=== PATIENT | female | born 1940 | race Caucasian/White ===

== ENCOUNTER 2016-10-24 16:53 | Inpatient (IN) | payer MEDICARE, OTHER ==
[~2016-10-24] VITALS: Ht 152.4 cm; Wt 79.1 kg
[~2016-10-24 16:53] MED LIST: AML5T PO; CHOL1TAB42 PO; CLOP75TA41 PO; DIPH-232 PO; ESCI5TAB PO; FENO145T20 PO; HYDR-2601 PO; ISOS30TA4 PO; LOVA40TA72 PO; LURA80TA PO; NIAC500T71 PO; OMEP20CA5 PO; [UNRECOGNIZED DRUG - CODE] PO
[2016-10-24 17:39] LABS: Basophils # (auto) 0 uL; Basophils % (auto) 0.5 % (0.0-2.0); Eosinophils # (auto) 0.1 uL; Eosinophils % (auto) 1.5 % (0.0-7.0); Hematocrit 40.4 % (36.0-46.0); Hemoglobin 12.9 g/dL (12.2-16.2); Lymphocytes # (auto) 2.1 uL; Lymphocytes % (auto) 36.3 % (10.0-50.0); Mean Corpuscular Hemoglobin 28.4 pg (28.0-32.0); Mean Corpuscular Volume 88.9 fL (80.0-100.0); Mean Platelet Volume 10.9 fL (7.4-10.4); Monocytes # (auto) 0.4 uL; Monocytes % (auto) 7.2 % (0.0-12.0); Neutrophils # (auto) 3.2 uL; Neutrophils % (auto) 54.5 % (37.0-80.0); Platelet Count (auto) 207 10^3/uL (140-450); Red Cell Distribution Width 18.1 % (11.6-16.0); SUSPECT VIEW TRANSMISSION; White Blood Cell 5.8 10^3/uL (4.4-10.8)
[2016-10-24 18:03] LABS: Albumin 2.6 g/dL (3.4-5.0); Anion Gap 12 (5-15); Aspartate Aminotransferase 21 U/L (15-37); BUN/Creatinine Ratio 26.8; Blood Urea Nitrogen 48 mg/dL (7-18); Calcium 7.8 mg/dL (8.5-10.1); Carbon Dioxide 23 mmol/L (21-32); Chloride 109 mmol/L (98-107); GFR African American 35 mL/min; GFR Non-African American 29 mL/min; Glucose 136 mg/dL (74-106); Potassium 4.6 mmol/L (3.5-5.1); Sodium 144 mmol/L (136-145)
[2016-10-24 18:12] LABS: Alkaline Phosphatase 84 U/L (45-117); Bilirubin, Total 0.7 mg/dL (0.2-1.0); Total Protein 6.1 g/dL (6.4-8.2)
[2016-10-24 18:14] LABS: Urine Bilirubin Negative (Negative); Urine Blood 1+ /uL (Negative); Urine Color Yellow (Yellow); Urine Glucose Normal (Normal); Urine Hyaline Cast MOD /lpf (0 - 2); Urine Ketone Negative (Negative); Urine Mucus FEW (None Seen); Urine Nitrite Negative (Negative); Urine RBC 38 /hpf (0 - 4); Urine Squamous Epithelial Cell FEW /hpf (<5); Urine Urobilinogen Normal (Negative); Urine pH 5.5 (5.0-8.0)
[2016-10-24 18:24] LABS: Lactic Acid 3.6 mmol/L (0.4-2.0)
[2016-10-24 18:43] LABS: REFLEX LACTIC ACID YES OR NO YES
[2016-10-24] MEDS ORDERED: LORazepam 2MG/ML-1ML VIAL IV ONE (23:30)
[2016-10-25] MEDS ORDERED: FUROSEMIDE 40 MG TAB PO ONE (01:15)
[2016-10-25] MEDS ORDERED: FUROSEMIDE 20 MG/2 ML VIAL IV ONE (02:00)
[2016-10-25] MEDS ORDERED: cefTRIAXone 1GM/50ML D5W 50 ML IV ONE (07:15)
[2016-10-25] MEDS ORDERED: MORPHINE SULF INJ 2 MG/ML SYRINGE 1ML IV PRN ×2 (07:15)
[2016-10-25] MEDS ORDERED: NITROGLYCERIN 0.4 MG SL TAB SL PRN (07:15)
[2016-10-25] MEDS ORDERED: DEXTROSE (50%) 50ML SYRG IV PRN (07:15)
[2016-10-25] MEDS ORDERED: ACETAMINOPHEN 500 MG TAB PO PRN (07:15)
[2016-10-25] MEDS ORDERED: LACTULOSE 20Gm/30ML SOLN PO PRN (07:15)
[2016-10-25] MEDS ORDERED: TEMAZEPAM 15 MG CAP PO PRN (07:15)
[2016-10-25] MEDS ORDERED: PROMETHAZINE HCL 25 MG/ML 1ML IV PRN (07:15)
[2016-10-25] MEDS ORDERED: LORazepam 0.5 MG TAB PO PRN (09:30)
[2016-10-25] MEDS: ENOXAPARIN SOD 30 MG/0.3 ML SYRINGE SC SCH (09:30)
[2016-10-25] MEDS: DONEPEZIL HYDROCHLORIDE 5 MG TAB PO SCH ×2 (09:31→09:51)
[2016-10-25] MEDS: cefTRIAXone 1GM/50ML D5W 50 ML IV SCH (09:31)
[2016-10-25] MEDS: ASPirin 81 mg TAB PO SCH (09:31)
[2016-10-25] MEDS: FUROSEMIDE 40 MG/4 ML VIAL IV SCH (09:31)
[2016-10-25] MEDS: CARVEDILOL 3.125 MG TAB PO SCH ×2 (09:32→21:57)
[2016-10-25] MEDS: PANTOPRAZOLE 40 MG TAB PO SCH ×2 (09:32→09:51)
[2016-10-25] MEDS: POTASSIUM CHL 20 Meq TABLET PO SCH ×2 (09:32→09:51)
[2016-10-25] MEDS: Niacin SR 500mg TAB PO SCH ×2 (09:33→09:51)
[2016-10-25] MEDS: ENALAPRIL MALEATE 2.5 MG TAB PO SCH (09:33)
[2016-10-25] MEDS: CITALOPRAM HYDROBR 20 MG TAB PO SCH (09:33)
[2016-10-25] MEDS: ISOSORBIDE MONONITRATE 60 MG TAB PO SCH ×2 (09:34→09:51)
[2016-10-25] MEDS: TRICOR PO SCH ×2 (09:34→17:30)
[2016-10-25] MEDS: LORazepam 0.5 MG TAB PO PRN (09:40)
[2016-10-25] MEDS ORDERED: PATIENTS OWN MEDICATION (Escitalopram Oxalate (Lexapro) 1 TAB) PO SCH (10:00)
[2016-10-25] MEDS ORDERED: OMEPRAZOLE 20MG/10ML ORAL SUSP PO SCH (10:00)
[2016-10-25] MEDS ORDERED: PATIENTS OWN MEDICATION (Isosorbide Mononitrate (Isosorbide Mononitrate Er) 1 TAB) PO SCH ×2 (10:00)
[2016-10-25] MEDS ORDERED: PATIENTS OWN MEDICATION (Fenofibrate 1 TAB) PO SCH (10:00)
[2016-10-25] MEDS ORDERED: LOVASTATIN PO SCH (10:00)
[2016-10-25] MEDS ORDERED: ENOXAPARIN SOD 40 MG/0.4 ML SYRINGE SC SCH (10:00)
[2016-10-25] MEDS: InsuLIN REG 1unit/0.01ml Soln (100units/ml) SC SCH ×3 (11:30→22:00)
[2016-10-25] MEDS: ACCU-CHEK COMFORT CURVE STRIP VI SCH ×3 (11:43→22:06)
[2016-10-25 12:32] VITALS: BP 142/100
[2016-10-25 17:28] VITALS: BP 130/82
[2016-10-25] MEDS: amLODIPine BESYLATE 5 MG TAB PO SCH (17:30)
[2016-10-25] MEDS: CLOPIDOGREL BISULFATE 75 MG TAB PO SCH (17:30)
[2016-10-25] MEDS ORDERED: LURASIDONE HCL PO SCH (18:00)
[2016-10-25] MEDS: ATORVASTATIN 20 MG TAB PO SCH (21:56)
[2016-10-25 22:00] VITALS: BP 135/80
[2016-10-26 05:00] VITALS: BP 115/79
[2016-10-26] MEDS: ACCU-CHEK COMFORT CURVE STRIP VI SCH ×4 (06:30→21:31)
[2016-10-26] MEDS: InsuLIN REG 1unit/0.01ml Soln (100units/ml) SC SCH ×4 (06:30→21:31)
[2016-10-26 07:58] LABS: Albumin 2.4 g/dL (3.4-5.0); BUN/Creatinine Ratio 26.9; Bilirubin, Total 0.6 mg/dL (0.2-1.0); Calcium 8.2 mg/dL (8.5-10.1); Potassium 4.6 mmol/L (3.5-5.1); Total Protein 5.6 g/dL (6.4-8.2)
[2016-10-26 09:00] VITALS: BP 136/77
[2016-10-26] MEDS: FUROSEMIDE 40 MG/4 ML VIAL IV SCH (09:34)
[2016-10-26] MEDS: CARVEDILOL 3.125 MG TAB PO SCH ×3 (09:37→21:42)
[2016-10-26] MEDS: DONEPEZIL HYDROCHLORIDE 5 MG TAB PO SCH (09:37)
[2016-10-26] MEDS: cefTRIAXone 1GM/50ML D5W 50 ML IV SCH (09:38)
[2016-10-26] MEDS: Niacin SR 500mg TAB PO SCH (09:39)
[2016-10-26] MEDS: CITALOPRAM HYDROBR 20 MG TAB PO SCH (09:40)
[2016-10-26] MEDS: ENALAPRIL MALEATE 2.5 MG TAB PO SCH (09:41)
[2016-10-26] MEDS: ENOXAPARIN SOD 30 MG/0.3 ML SYRINGE SC SCH (09:42)
[2016-10-26] MEDS: ASPirin 81 mg TAB PO SCH (09:50)
[2016-10-26] MEDS: TRICOR PO SCH ×2 (09:50→18:00)
[2016-10-26] MEDS: ISOSORBIDE MONONITRATE 60 MG TAB PO SCH (09:50)
[2016-10-26] MEDS: POTASSIUM CHL 20 Meq TABLET PO SCH (09:51)
[2016-10-26] MEDS: PANTOPRAZOLE 40 MG TAB PO SCH (09:51)
[2016-10-26 13:00] VITALS: BP 131/77
[2016-10-26] MEDS: HYDROcodone-ACET 5/325MG TAB PO PRN (13:23)
[2016-10-26] MEDS ORDERED: ONDANSETRON HCL 4 MG/2 ML VIAL IV ONE (14:00)
[2016-10-26] MEDS ORDERED: LEVOTHYROXINE SODIUM 50 MCG TAB PO ONE (14:45)
[2016-10-26 17:00] VITALS: BP 103/78
[2016-10-26] MEDS: amLODIPine BESYLATE 5 MG TAB PO SCH (18:00)
[2016-10-26] MEDS: CLOPIDOGREL BISULFATE 75 MG TAB PO SCH (18:11)
[2016-10-26] MEDS: ATORVASTATIN 20 MG TAB PO SCH (21:32)
[2016-10-26 22:00] VITALS: BP 104/63
[2016-10-27] MEDS: HYDROcodone-ACET 5/325MG TAB PO PRN (02:15)
[2016-10-27 05:30] VITALS: BP 116/66
[2016-10-27] MEDS: ACCU-CHEK COMFORT CURVE STRIP VI SCH ×4 (06:20→22:23)
[2016-10-27] MEDS: InsuLIN REG 1unit/0.01ml Soln (100units/ml) SC SCH ×4 (06:30→22:00)
[2016-10-27] MEDS: LEVOTHYROXINE SODIUM 50 MCG TAB PO SCH (06:31)
[2016-10-27 06:41] LABS: BUN/Creatinine Ratio 23.3; Calcium 7.6 mg/dL (8.5-10.1)
[2016-10-27 08:00] VITALS: BP 140/69
[2016-10-27] MEDS: FUROSEMIDE 40 MG/4 ML VIAL IV SCH ×2 (09:56→17:58)
[2016-10-27] MEDS: ASPirin 81 mg TAB PO SCH (09:57)
[2016-10-27] MEDS: DONEPEZIL HYDROCHLORIDE 5 MG TAB PO SCH (09:57)
[2016-10-27] MEDS: CARVEDILOL 3.125 MG TAB PO SCH ×2 (09:57→22:22)
[2016-10-27] MEDS: CITALOPRAM HYDROBR 20 MG TAB PO SCH (09:57)
[2016-10-27] MEDS: Niacin SR 500mg TAB PO SCH (09:59)
[2016-10-27] MEDS: ISOSORBIDE MONONITRATE 60 MG TAB PO SCH (09:59)
[2016-10-27] MEDS: POTASSIUM CHL 20 Meq TABLET PO SCH ×2 (09:59→22:21)
[2016-10-27] MEDS: PANTOPRAZOLE 40 MG TAB PO SCH (09:59)
[2016-10-27] MEDS: ENOXAPARIN SOD 30 MG/0.3 ML SYRINGE SC SCH (10:00)
[2016-10-27] MEDS: TRICOR PO SCH ×2 (10:00→17:59)
[2016-10-27 13:00] VITALS: BP 119/57
[2016-10-27] MEDS: METOLAZONE 5 MG TAB PO SCH (14:22)
[2016-10-27 17:00] VITALS: BP 123/65
[2016-10-27] MEDS: CLOPIDOGREL BISULFATE 75 MG TAB PO SCH (17:58)
[2016-10-27] MEDS: amLODIPine BESYLATE 5 MG TAB PO SCH (17:59)
[2016-10-27] MEDS: IPRATROPIUM BROM 0.5 MG/2.5ML INH SOL NEB SCH (19:06)
[2016-10-27] MEDS: ALBUTEROL SULF 2.5 MG/0.5ML(0.5%) NEB SOLN NEB SCH (19:07)
[2016-10-27 22:00] VITALS: BP 115/55
[2016-10-27] MEDS: ATORVASTATIN 20 MG TAB PO SCH (22:21)
[2016-10-28 02:30] VITALS: BP 115/55
[2016-10-28 05:30] VITALS: BP 128/70
[2016-10-28] MEDS: FUROSEMIDE 40 MG/4 ML VIAL IV SCH ×2 (05:58→17:57)
[2016-10-28] MEDS: LEVOTHYROXINE SODIUM 50 MCG TAB PO SCH (05:58)
[2016-10-28] MEDS: InsuLIN REG 1unit/0.01ml Soln (100units/ml) SC SCH ×4 (06:19→22:07)
[2016-10-28] MEDS: ACCU-CHEK COMFORT CURVE STRIP VI SCH ×4 (06:19→22:04)
[2016-10-28] MEDS: IPRATROPIUM BROM 0.5 MG/2.5ML INH SOL NEB SCH ×4 (06:38→19:31)
[2016-10-28] MEDS: ALBUTEROL SULF 2.5 MG/0.5ML(0.5%) NEB SOLN NEB SCH ×4 (06:38→19:31)
[2016-10-28 09:23] VITALS: BP 126/82
[2016-10-28] MEDS: Niacin SR 500mg TAB PO SCH (09:54)
[2016-10-28] MEDS: DONEPEZIL HYDROCHLORIDE 5 MG TAB PO SCH (09:54)
[2016-10-28] MEDS: POTASSIUM CHL 20 Meq TABLET PO SCH ×2 (09:54→21:57)
[2016-10-28] MEDS: PANTOPRAZOLE 40 MG TAB PO SCH (09:55)
[2016-10-28] MEDS: ENOXAPARIN SOD 30 MG/0.3 ML SYRINGE SC SCH (09:57)
[2016-10-28] MEDS: ISOSORBIDE MONONITRATE 60 MG TAB PO SCH (10:46)
[2016-10-28] MEDS: METOLAZONE 5 MG TAB PO SCH (10:47)
[2016-10-28] MEDS: ASPirin 81 mg TAB PO SCH (10:47)
[2016-10-28] MEDS: CITALOPRAM HYDROBR 20 MG TAB PO SCH (10:47)
[2016-10-28] MEDS: CARVEDILOL 3.125 MG TAB PO SCH ×2 (10:47→21:58)
[2016-10-28] MEDS ORDERED: NITROFURANTOIN (MONO) 100 mg CAP PO ONE (11:45)
[2016-10-28 13:00] VITALS: BP 132/87
[2016-10-28] MEDS: LORazepam 0.5 MG TAB PO PRN (14:47)
[2016-10-28] MEDS: HYDROcodone-ACET 5/325MG TAB PO PRN ×2 (14:47→21:57)
[2016-10-28 16:53] VITALS: BP 138/77
[2016-10-28] MEDS: TRICOR PO SCH (17:37)
[2016-10-28] MEDS: CLOPIDOGREL BISULFATE 75 MG TAB PO SCH (17:58)
[2016-10-28] MEDS: amLODIPine BESYLATE 5 MG TAB PO SCH (17:58)
[2016-10-28 20:00] VITALS: BP 126/53
[2016-10-28] MEDS: ATORVASTATIN 20 MG TAB PO SCH (21:57)
[2016-10-28] MEDS: NITROFURANTOIN (MONO) 100 mg CAP PO SCH (21:57)
[2016-10-29] VITALS (7 sets, daily range): BP systolic 115–142; BP diastolic 60–73
[2016-10-29 05:44] LABS: Calcium 7.7 mg/dL (8.5-10.1); Potassium 5.4 mmol/L (3.5-5.1)
[2016-10-29 05:55] LABS: BUN/Creatinine Ratio 27.6
[2016-10-29] MEDS: FUROSEMIDE 40 MG/4 ML VIAL IV SCH ×2 (06:19→17:42)
[2016-10-29] MEDS: ACCU-CHEK COMFORT CURVE STRIP VI SCH ×4 (06:20→21:44)
[2016-10-29] MEDS: LEVOTHYROXINE SODIUM 50 MCG TAB PO SCH (06:20)
[2016-10-29] MEDS: LORazepam 0.5 MG TAB PO PRN (06:31)
[2016-10-29] MEDS: InsuLIN REG 1unit/0.01ml Soln (100units/ml) SC SCH ×4 (06:31→21:49)
[2016-10-29] MEDS: HYDROcodone-ACET 5/325MG TAB PO PRN (06:32)
[2016-10-29] MEDS: ISOSORBIDE MONONITRATE 60 MG TAB PO SCH (10:26)
[2016-10-29] MEDS: METOLAZONE 5 MG TAB PO SCH (10:27)
[2016-10-29] MEDS: NITROFURANTOIN (MONO) 100 mg CAP PO SCH ×2 (10:27→21:43)
[2016-10-29] MEDS: PANTOPRAZOLE 40 MG TAB PO SCH (10:27)
[2016-10-29] MEDS: ENOXAPARIN SOD 30 MG/0.3 ML SYRINGE SC SCH (10:27)
[2016-10-29] MEDS: CITALOPRAM HYDROBR 20 MG TAB PO SCH (10:28)
[2016-10-29] MEDS: ASPirin 81 mg TAB PO SCH (10:28)
[2016-10-29] MEDS: Niacin SR 500mg TAB PO SCH (10:28)
[2016-10-29] MEDS: POTASSIUM CHL 10% (20 MEQ/15ML) ORAL SOLN PO SCH ×2 (10:29→21:44)
[2016-10-29] MEDS: CARVEDILOL 3.125 MG TAB PO SCH ×2 (10:29→21:43)
[2016-10-29] MEDS: DONEPEZIL HYDROCHLORIDE 5 MG TAB PO SCH (10:29)
[2016-10-29] MEDS: CLOPIDOGREL BISULFATE 75 MG TAB PO SCH (17:42)
[2016-10-29] MEDS: TRICOR PO SCH (17:43)
[2016-10-29] MEDS: amLODIPine BESYLATE 5 MG TAB PO SCH (17:43)
[2016-10-29] MEDS: IPRATROPIUM BROM 0.5 MG/2.5ML INH SOL NEB SCH (19:17)
[2016-10-29] MEDS: ALBUTEROL SULF 2.5 MG/0.5ML(0.5%) NEB SOLN NEB SCH (19:17)
[2016-10-29] MEDS: ATORVASTATIN 20 MG TAB PO SCH (21:43)
[2016-10-30 04:40] VITALS: BP 140/73
[2016-10-30] MEDS: FUROSEMIDE 40 MG/4 ML VIAL IV SCH ×2 (06:06→18:06)
[2016-10-30] MEDS: InsuLIN REG 1unit/0.01ml Soln (100units/ml) SC SCH ×4 (06:19→22:00)
[2016-10-30] MEDS: ACCU-CHEK COMFORT CURVE STRIP VI SCH ×4 (06:19→21:47)
[2016-10-30] MEDS ORDERED: LEVOTHYROXINE SODIUM 50 MCG TAB PO SCH (07:00)
[2016-10-30] MEDS: IPRATROPIUM BROM 0.5 MG/2.5ML INH SOL NEB SCH ×3 (07:28→19:57)
[2016-10-30] MEDS: ALBUTEROL SULF 2.5 MG/0.5ML(0.5%) NEB SOLN NEB SCH ×3 (07:28→19:57)
[2016-10-30 08:58] VITALS: BP 128/70
[2016-10-30] MEDS: ENOXAPARIN SOD 30 MG/0.3 ML SYRINGE SC SCH (09:45)
[2016-10-30] MEDS: Niacin SR 500mg TAB PO SCH (09:46)
[2016-10-30] MEDS: DONEPEZIL HYDROCHLORIDE 5 MG TAB PO SCH (09:46)
[2016-10-30] MEDS: PANTOPRAZOLE 40 MG TAB PO SCH (09:47)
[2016-10-30] MEDS: CARVEDILOL 3.125 MG TAB PO SCH ×2 (09:47→21:47)
[2016-10-30] MEDS: METOLAZONE 5 MG TAB PO SCH (09:48)
[2016-10-30] MEDS: NITROFURANTOIN (MONO) 100 mg CAP PO SCH ×2 (09:48→21:47)
[2016-10-30] MEDS: ASPirin 81 mg TAB PO SCH (09:48)
[2016-10-30] MEDS: CITALOPRAM HYDROBR 20 MG TAB PO SCH (09:49)
[2016-10-30] MEDS: ISOSORBIDE MONONITRATE 60 MG TAB PO SCH (09:49)
[2016-10-30 10:34] LABS: BUN/Creatinine Ratio 27.7; Calcium 7.8 mg/dL (8.5-10.1); Potassium 5.5 mmol/L (3.5-5.1)
[2016-10-30 12:08] VITALS: BP 137/87
[2016-10-30 16:53] VITALS: BP 121/65
[2016-10-30] MEDS: TRICOR PO SCH (18:00)
[2016-10-30] MEDS: CLOPIDOGREL BISULFATE 75 MG TAB PO SCH (18:07)
[2016-10-30] MEDS: amLODIPine BESYLATE 5 MG TAB PO SCH (18:07)
[2016-10-30 21:39] VITALS: BP 133/68
[2016-10-30] MEDS: ATORVASTATIN 20 MG TAB PO SCH (21:47)
[2016-10-31 02:20] VITALS: BP 126/71
[2016-10-31 04:42] VITALS: BP 145/74
[2016-10-31] MEDS: IPRATROPIUM BROM 0.5 MG/2.5ML INH SOL NEB SCH ×3 (05:47→11:39)
[2016-10-31] MEDS: ALBUTEROL SULF 2.5 MG/0.5ML(0.5%) NEB SOLN NEB SCH ×3 (05:47→11:44)
[2016-10-31] MEDS: InsuLIN REG 1unit/0.01ml Soln (100units/ml) SC SCH ×2 (06:07→11:30)
[2016-10-31] MEDS: ACCU-CHEK COMFORT CURVE STRIP VI SCH ×2 (06:07→11:30)
[2016-10-31] MEDS: FUROSEMIDE 40 MG/4 ML VIAL IV SCH (06:07)
[2016-10-31 06:41] LABS: Calcium 8.6 mg/dL (8.5-10.1); Potassium 4.6 mmol/L (3.5-5.1)
[2016-10-31] MEDS ORDERED: LEVOTHYROXINE SODIUM 100 MCG TAB PO SCH (07:00)
[2016-10-31 08:00] VITALS: BP 147/72
[2016-10-31] MEDS: CARVEDILOL 3.125 MG TAB PO SCH (09:51)
[2016-10-31] MEDS: ASPirin 81 mg TAB PO SCH (09:51)
[2016-10-31] MEDS: PANTOPRAZOLE 40 MG TAB PO SCH (09:51)
[2016-10-31] MEDS: ISOSORBIDE MONONITRATE 60 MG TAB PO SCH (09:52)
[2016-10-31] MEDS: CITALOPRAM HYDROBR 20 MG TAB PO SCH (09:53)
[2016-10-31] MEDS: METOLAZONE 5 MG TAB PO SCH (09:54)
[2016-10-31] MEDS: DONEPEZIL HYDROCHLORIDE 5 MG TAB PO SCH (09:55)
[2016-10-31] MEDS: NITROFURANTOIN (MONO) 100 mg CAP PO SCH (09:55)
[2016-10-31] MEDS: ENOXAPARIN SOD 30 MG/0.3 ML SYRINGE SC SCH (09:56)
[2016-10-31] MEDS: Niacin SR 500mg TAB PO SCH (09:56)
[2016-10-31 10:53] LABS: Temperature: 23.1 C (20.0-25.0)
[2016-10-31 13:00] VITALS: BP 141/74
[2016-10-31 15:11] VITALS: BP 141/74
[2016-10-31 17:00] VITALS: BP 154/73
== END 2016-10-31 17:45 | disposition hospice, home (50) | DRG 682 ==
LOC: EDBD 16:53 → ER 16:53 → TELE 16:54 → TELE-CENTR 10-25 12:30
PROVIDERS: ADMIT Internal Medicine; ATTEND Internal Medicine Pulmonary Disease
DX: N17.9 Acute kidney failure, unspecified (principal); G93.41 Metabolic encephalopathy; I50.23 Acute on chronic systolic (congestive) heart failure; I13.0 Hypertensive heart and chronic kidney disease with heart failure and stage 1 through stage 4 chronic kidney disease, or unspecified chronic kidney disease; N39.0 Urinary tract infection, site not specified; N18.4 Chronic kidney disease, stage 4 (severe); I25.10 Atherosclerotic heart disease of native coronary artery without angina pectoris; F02.80 Dementia in other diseases classified elsewhere, unspecified severity, without behavioral disturbance, psychotic disturbance, mood disturbance, and anxiety; J44.9 Chronic obstructive pulmonary disease, unspecified; M10.9 Gout, unspecified; E03.9 Hypothyroidism, unspecified; E11.22 Type 2 diabetes mellitus with diabetic chronic kidney disease; I27.2 Other secondary pulmonary hypertension; I35.0 Nonrheumatic aortic (valve) stenosis; Z95.1 Presence of aortocoronary bypass graft; Z86.73 Personal history of transient ischemic attack (TIA), and cerebral infarction without residual deficits; Z87.891 Personal history of nicotine dependence; Z83.3 Family history of diabetes mellitus; Z23 Encounter for immunization
CPT/HCPCS: 36415; 36600; 51702; 70450; 71010; 80048; 80053; 80320; 81001; 82550; 82805; 82962; 83036; 83605; 83880; 84439; 84443; 84481; 84484; 85025; 87040; 87086; 87088; 87186; 93005; 93306; 93971; 94640; 96365; 96372; 96375; J0696; J1815; J2405

== ENCOUNTER 2017-01-16 18:58 | Emergency (ER) | payer MEDICARE, OTHER ==
[~2017-01-16] VITALS: Ht 167.6 cm; Wt 65.8 kg
[~2017-01-16 18:58] MED LIST changes: +CALCIUM CHLOR(10%) 100MG/ML 10ML SYRINGE IV ONE; +EPINEPHrine HCL 1 MG/10 ML SYRG IV ONE; -FENO145T20 PO; -HYDR-2601 PO; +SODIUM BICARBONATE 8.4% INJ 50ML SYRINGE IV ONE
== END 2017-01-16 22:56 | disposition expired ==
LOC: EDUNIT# 18:58 → EDBD 19:12 → ER 19:12
DX: I46.9 Cardiac arrest, cause unspecified (principal); Z88.0 Allergy status to penicillin; Z88.8 Allergy status to other drugs, medicaments and biological substances; I25.810 Atherosclerosis of coronary artery bypass graft(s) without angina pectoris; E11.9 Type 2 diabetes mellitus without complications; I10 Essential (primary) hypertension; M10.9 Gout, unspecified; Z95.1 Presence of aortocoronary bypass graft
CPT/HCPCS: 51702; 92950; 99291; J0171